=== PATIENT | male | born 1960 | race Caucasian/White ===

== ENCOUNTER 2021-05-13 07:07 | Emergency (ER) | payer BC ==
[2021-05-13] MEDS ORDERED: Sulfamethoxazole/Trimethoprim 800-160 MG Tab PO ONE (07:34)
[2021-05-13] MEDS ORDERED: Ibuprofen 600 MG Tab PO ONE (07:35)
== END 2021-05-13 08:27 | disposition home or self-care (01) ==
LOC: MW.ED 07:07
DX: L03.116 Cellulitis of left lower limb (principal); I10 Essential (primary) hypertension
CPT/HCPCS: 73620; 99283; A9270